=== PATIENT | female | born 1960 | race Caucasian/White ===

== ENCOUNTER 2019-12-11 20:57 | Emergency (ER) | payer MEDICAID ==
[~2019-12-11] VITALS: Ht 160 cm; Wt 97.7 kg
[~2019-12-11 20:57] MED LIST: ADVAIR; ALBUPOW26; ASPI81CH43; CARV3.1240; DOCU100T23; HUMALOG; INSULIN; IRONTAB35; LEVAMIR; METOCLOPRAMIDE; MONTELUKAST; RABE20TA5; TAB A VITE; TIOTCAP; [UNRECOGNIZED DRUG - OTHER]
[2019-12-11] MEDS ORDERED: ONDANSETRON ODT 4 MG TAB PO ONE (21:30)
[2019-12-11] MEDS ORDERED: HYDROcodone-ACET 5/325MG TAB PO ONE (21:30)
[2019-12-12 03:39] LABS: Basophils # (auto) 0 10 ^3/uL (0-0.2); Basophils % (auto) 0.5 % (0.0-2.0); Eosinophils # (auto) 0.1 10 ^3/uL (0-0.8); Eosinophils % (auto) 1.3 % (0.0-7.0); Hemoglobin 11.9 g/dL (12.2-16.2); Lymphocytes # (auto) 1.5 10 ^3/uL (0.4-5.4); Lymphocytes % (auto) 24.3 % (10.0-50.0); Mean Corpuscular Hemoglobin 31.3 pg (28.0-32.0); Mean Corpuscular Hgb Conc. 32.1 g/dL (32.0-36.0); Mean Corpuscular Volume 97.7 fL (80.0-100.0); Monocytes # (auto) 0.5 10 ^3/uL (0-1.3); Monocytes % (auto) 7.4 % (0.0-12.0); Neutrophils # (auto) 4.1 10 ^3/uL (1.6-8.6); Neutrophils % (auto) 66.5 % (37.0-80.0); Platelet Count (auto) 249 10^3/uL (140-450); Red Blood Cells 3.79 10^6/uL (4.0-5.20); Red Cell Distribution Width 13.8 % (11.8-14.3); White Blood Cell 6.2 10^3/uL (4.4-10.8)
[2019-12-12 03:56] LABS: Albumin 3.5 g/dL (3.4-5.0); Anion Gap 9 (5-15); Blood Urea Nitrogen 35 mg/dL (7-18); Calcium 8.9 mg/dL (8.5-10.1); Carbon Dioxide 26 mmol/L (21-32); Chloride 91 mmol/L (98-107); INR 0.98 (0.9-1.15); Partial Thromboplastin Time 27.9 sec (23.0-31.2); Potassium 4.1 mmol/L (3.5-5.1); Sodium 126 mmol/L (136-145)
[2019-12-12 03:59] LABS: Alanine Aminotransferase 15 U/L (13-56); Aspartate Aminotransferase 9 U/L (15-37); Bilirubin, Total 0.4 mg/dL (0.2-1.0); GFR African American 9 mL/min; GFR Non-African American 7 mL/min; Total Protein 9.2 g/dL (6.4-8.2)
[2019-12-12] MEDS ORDERED: MORPHINE SULFATE 4 MG/ML SYR/VIAL IV ONE (04:00)
[2019-12-12] MEDS ORDERED: APIXABAN 2.5 MG TAB PO ONE (04:00)
[2019-12-12 04:02] LABS: BUN/Creatinine Ratio 5.6
[2019-12-12 04:05] LABS: Alkaline Phosphatase 127 U/L (45-117)
[2019-12-12 04:06] LABS: Glucose 531 mg/dL (74-106)
[2019-12-12] MEDS ORDERED: InsuLIN REG 1unit/0.01ml Soln (100units/ml) IV ONE (04:30)
[2019-12-12] MEDS ORDERED: PIPERACILLIN-TAZOB 3.375GM 100 ML IV ONE (04:30)
[2019-12-12] MEDS ORDERED: VANCOMYCIN 1GM/250ML 250 ML IV ONE (04:30)
[2019-12-12] MEDS ORDERED: HYDROmorphone HCL 2 MG/ML VL IV ONE (07:30)
[2019-12-12] MEDS ORDERED: APIXABAN 2.5 MG TAB PO SCH (10:00)
[2019-12-12] MEDS ORDERED: APIX5TAB PO (10:19)
[2019-12-12] MEDS ORDERED: CLIN300C8 PO (10:20)
[2019-12-12 12:30] VITALS: BP 186/64
--- NOTE | 2019-12-14 10:53 | NUR ---
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 No call or page on this patient. Patient was discharged home with [facility] hospice. No need for home health since patient went home with hospice. Addendum: 12/14/19 at 1455 by Evelyn Erwin Amended: Links added.
== END 2019-12-12 12:30 | disposition home or self-care (01) ==
LOC: ER 20:57
DX: L03.116 Cellulitis of left lower limb (principal); I82.402 Acute embolism and thrombosis of unspecified deep veins of left lower extremity; E11.22 Type 2 diabetes mellitus with diabetic chronic kidney disease; I13.2 Hypertensive heart and chronic kidney disease with heart failure and with stage 5 chronic kidney disease, or end stage renal disease; N18.6 End stage renal disease; I50.9 Heart failure, unspecified; E11.65 Type 2 diabetes mellitus with hyperglycemia; Z99.2 Dependence on renal dialysis
CPT/HCPCS: 36415; 71045; 80053; 82962; 83605; 83880; 84484; 85025; 85379; 85610; 85730; 87040; 93005; 93971; 96365; 96366; 96367; 96375; 99285; J1170; J1815; J2270; J2543; J3370; Q0162